=== PATIENT | female | born 1965 | race Caucasian/White ===

== ENCOUNTER 2018-03-09 06:04 | Inpatient (IN) ==
[2018-03-09] MEDS ORDERED: Albuterol 2.5 MG/3 ML NEBULIZER IH ONE (06:22)
[2018-03-09] MEDS ORDERED: CeFAZolin Syr 2,000MG/20 ML 2,000 MG/20 ML SYRINGE IVPB ONE (06:22)
[2018-03-09] MEDS ORDERED: Ringers Solution, Lactated 1,000 ML IVC SCH (06:30)
--- NOTE | 2018-03-09 06:50 | History & Physical Report ---
Date of Encounter: 03/09/18 Time of Encounter: 06:50 24 Hour HP Update - Instructions Instructions: If the History and Physical is less than 30 days old and was completed prior to A.M. admission and or procedure and has NOT been updated on calendar day of procedure please complete this update prior to performing procedure. - Update Patient reports changes in Medical Condition: No Changes in examination, assessment, or condition: No Changes in Medication: No Preop tests/diagnostics Reviewed: Yes Surgery Remains Indicated: Yes Consent for Planned Operative Procedure(s) Verified: Yes - Pre-Operative Checklist Preoperative Checklist Indicated: No Prophylactic Antibiotic Ordered: Yes Is VTE Prophylaxis Indicated?: Yes
[2018-03-09] MEDS ORDERED: *HR* Midazolam HCl 2 MG/2 ML VIAL ONE (06:57)
[2018-03-09] MEDS ORDERED: *HR* FentaNYL (PF) 100 MCG/2 ML VIAL ONE ×2 (06:57→08:10)
[2018-03-09] MEDS ORDERED: Propofol 500 MG/50 ML INFUS..BTL ONE (07:00)
[2018-03-09] MEDS ORDERED: *HR* Propofol 200 MG/20 ML VIAL IVP ONE (07:00)
[2018-03-09] MEDS ORDERED: ROPIVACAINE HCL/PF 0.5% 30 ML VIAL ONE (07:10)
[2018-03-09] MEDS ORDERED: Bupivacaine/Clonidine Syringe 1 EACH SYRINGE ONE (07:10)
[2018-03-09] MEDS ORDERED: Ethanol\\Acetic Acid\\Na Ace\\Ben 1,000 ML IRRIG.SOLN IR ONE (07:12)
[2018-03-09] MEDS ORDERED: Pregabalin 75 MG CAPSULE ONE (07:12)
[2018-03-09] MEDS ORDERED: Metoclopramide 10 MG/2 ML VIAL ONE (07:12)
[2018-03-09] MEDS ORDERED: Acetaminophen IV 1,000 MG/100 ML INFUS..BTL ONE (07:13)
[2018-03-09] MEDS ORDERED: Famotidine 20 MG/2 ML VIAL ONE (07:13)
[2018-03-09] MEDS ORDERED: Famotidine 20 MG/2 ML VIAL IVP ONE (07:16)
[2018-03-09] MEDS ORDERED: Metoclopramide 10 MG/2 ML VIAL IVP ONE (07:16)
[2018-03-09] MEDS ORDERED: Pregabalin 75 MG CAPSULE PO ONE (07:17)
[2018-03-09] MEDS ORDERED: Acetaminophen IV 1,000 MG/100 ML INFUS..BTL IVPB ONE (07:17)
[2018-03-09] MEDS ORDERED: LIDOCAINE 1% PF 2 ML AMPUL ONE (07:18)
[2018-03-09] MEDS ORDERED: Ondansetron 4 MG/2 ML VIAL ONE (07:18)
--- NOTE | 2018-03-09 07:21 | Anesthesia Evaluation PreOp ---
Date of Encounter: 03/09/18 Time of Encounter: 07:15 - Past History Planned Operation: Rt TKA Cardiac History: HTN, Hyperlipidemia, Arrhythmia Pulmonary History: Smoker, COPD DYE TANK TENDER History: Denies Any Significant HX, Other (Chronic Back Pain DDD) Other Medical History: Diabetes Type II Anesthesia History: No Prior Anesthetic Complications : No Alcohol Use: none, rarely Drug use: none, other Medications and Allergies Prazosin [Minipress] 5 mg PO DAILY 03/26/17 [History] Aspirin Enteric Coated [Aspirin EC] 325 mg PO BID 10 Days #20 tablet. [Rx] OxyCODONE Immed Rel [Roxicodone 5 MG] 5 mg PO Q6HR PRN 7 Days #28 tablet [Rx] DULoxetine [Cymbalta] 30 mg PO DAILY 03/09/18 [History] Dapagliflozin/Metformin HCl [Xigduo Xr 5 mg-1,000 mg Tablet] 1 each PO DAILY [History] Furosemide [Lasix] 20 mg PO PRN PRN 03/09/18 [History] Gabapentin [Neurontin] 800 mg PO QID 03/09/18 [History] Insulin Degludec [Tresiba Flextouch U-200] 40 unit SUBTEN DAILY 03/09/18 [ History] Potassium 10 mg PO BID 03/09/18 [History] Varenicline Tartrate [Chantix Continuing Months Pack] 1 each PO AD 03/09/18 [ History] 3 Allergy/AdvReac Type Severity Reaction Status Date / Time amitriptyline Allergy See Verified 02/19/18 14:44 Comments hydrochlorothiazide Allergy Dizziness Verified 02/19/18 14:44 ondansetron [From Zofran] Allergy Headache Verified 02/19/18 14:44 pregabalin [From Lyrica] Allergy See Verified 02/19/18 14:44 Comments sitagliptin [From Januvia] Allergy See Verified 02/19/18 14:44 Comments DPP4I Allergy See Uncoded 03/09/18 06:48 Comments GLP1 Allergy See Uncoded 02/19/18 14:44 Comments - Meds/Allergy Pre-op Review Medications Reviewed: Yes Allergies Reviewed: Yes Beta Blockers on Current Med List: No Anesthesia Results - Labs Laboratory Tests 02/19/18 02/19/18 02/19/18 15:12 15:12 15:12 Hgb 15.0 Hct 42.8 Plt Count 124 L PT 11.4 INR 1.0 APTT 35.1 Sodium 136 Potassium 4.2 BUN 15 Creatinine 0.91 - Imaging EKG: report reviewed (SR) Additional studies: ECHO EF 55% 2014 Anesthesia Exam O2 Sat Height 1.52 m Height 1.52 m Height 1.52 m Weight 77.111 kg Weight 77.111 kg Weight 77.111 kg O2 Sat by Pulse Oximetry 96 Vital Signs Temp Pulse Resp BP Pulse Ox 97.8 F 69 18 119/76 96 03/09/18 06:41 03/09/18 06:41 03/09/18 06:41 03/09/18 06:41 03/09/18 06:41 Height: 5'0 Weight: 170 lbs NPO (# of Hours): MN Pain Scale: 0 - HEENT Pupil (Motor): Pupils equal, EOMI Mallampati: II Teeth: Normal Oral Opening: Greater than 3 - DYE TANK TENDER LOC: Oriented DYE TANK TENDER Motor: Normal RUE, Normal LUE, Normal RLE, Normal LLE, Normal Face DYE TANK TENDER Sensory: Normal: RUE, LUE, RLE, LLE, Face - Cardiac Rhythm: Regular Murmur: None JVD: No Carotid Bruit: No - Pulmonary Breath Sounds: bilateral Clear Respiratory Effort: Symmetrical Anesthesia Assess/Plan ASA Score: 3 (DM COPD HTN) Modified [place] Scale for Level of Consciousness: Cooperative, oriented, and tranquil Anesthetic Plan: General, Regional Monitoring Plan: Standard Monitors Recovery Plan: PACU (Discussed GA and RA, agrees to proceed)
[2018-03-09] MEDS ORDERED: *HR* OxyCODONE/APAP 5/325 TABLET PO PRN (07:23)
[2018-03-09] MEDS ORDERED: *HR* Promethazine 25 MG/ML VIAL IVP ONE (07:26)
[2018-03-09] MEDS ORDERED: EPHEDrine 50 MG/ML VIAL ONE (08:28)
--- NOTE | 2018-03-09 08:35 | Anesthesia Procedures ---
Date of Encounter: 03/09/18 Time of Encounter: 07:31 Procedures: Anesthesia - Nerve Block Procedure Date: 03/09/18 Time: 07:31 Allergies/Adv Reactions: Refer to Allergy Documentation in Chart Pre-op Diagnosis: OA R Knee Surgical Procedure: R Knee TKArthroplasty Checklist: Correct Patient Identifier, Correct procedure, History checked Correct side: Right Blood Thinner: No Monitor Applied: EKG, BP, Pulse Oximetry Supplemental Oxygen via Nasal Cannula (L/min): 2 Sedation: Versed (mg): 2 Sedation: Fentanyl (mcg): 100 Indication: Post Op Analgesia Pre-op Neuro Deficits: No Block Type: Other (Adductor Canal Block and IPACK Block) Catheter placed: No Sterile Technique: Yes Ultrasound used: Yes Anatomy identified: Yes Visual spread of Local: Yes Neuro Stimulation: No Blood on Needle Aspiration: No Smooth Injection of Local: Yes Pain with Injection of Local: No Prep: Chlorhexadine Needle: 21 x 100 mm Stimuplex (x2) Local: 0.25% Bupivicaine w/Clonidine 20 mcg/cc (20mL for IPACK ), Ropivacaine ( 20mL 0.5% Ropivacaine for Adductor Canal Block) Volume (cc): 20/20 Number of Attempts: 1 Complications: None/effective block Vitals: Vital Signs/O2 Sat/Glucose, Most Recent Temp Pulse Resp BP Pulse Ox 97.8 F 78 18 128/78 94 03/09/18 06:41 03/09/18 07:47 03/09/18 06:41 03/09/18 07:47 03/09/18 07:47 Blood Glucose* 185
--- NOTE | 2018-03-09 08:49 | Orthopedic Operative Note ---
Date of procedure: 03/09/18 Pre-op diagnosis: Right knee arthritis Post-op diagnosis: same Procedure: Procedure: Right robotic-assisted Total knee replacement Estimated blood loss: 200 cc Hardware: Metal and polyethylene replacement. [place] Femur: 2 Tibia: 3 TS insert: 11 Patella: 36 Exam Under anesthesia: 1 degree extension 3 degree varus as calculated by the robot full flexion and no instability Procedural Notes: Grade 4 arthritic changes medial compartment patellofemoral joint grade 3 lateral compartment Operative procedure: The patient was brought to the operating room and placed on the operating room table. After general anesthesia was administered the operative knee was examined. Findings were noted in the exam under anesthesia. The operative extremity was prepped and draped in sterile surgical fashion. The patient received IV antibiotics prior to skin incision. A standard midline incision was made centered over the patella. The incision was made through the skin and subcutaneous tissue. A medial parapatellar tendon approach was performed. Care was taken to preserve tissue along the medial aspect of the patella. And to protect the patella tendon. The deep MCL was released off the medial tibia. The infra patella fat pad was excised. The patella was everted and cut was made at the level of the insertion of the quadriceps and patella tendon. The patella was sized to a 36 the guide was seated and the lug holes are drilled. Knee was brought into flexion. Patient noted to have Steinmann pins were placed in the tibia and the femur for the tibial and femoral arrays respectively. Checkpoints were also placed in the tibia and the femur for calculation purposes. The knee including the femur and the tibial registered. Osteophytes, ACL and PCL were excised at this point. Extension and flexion were assessed with a valgus stress components were adjusted on the computer to balance the knee. Femoral cuts were made first with robotic assistance, these included the anterior cut posterior cuts chamfer cuts. Tibial cut was then performed with robotic assistance as well. Bone fragments were removed, as well as the medial and lateral meniscus. The size 2 femoral guide was seated box cut was made lug holes are drilled. The size 3 tibial tray was seated and prepared with the fin cutter. Trial reduction with the 11 TS Shirin revealed extension of 0 degree and full flexion. No varus valgus instability. Trial reduction revealed excellent patella tracking. All trial components were removed all bony surfaces were irrigated. The Tibia was seated followed by the femur, The Shirin size 11 was seated and secured patella. Patient had similar findings for motion and stability. The knee was closed by the PA. The knee was then irrigated out with 2 L of pulse irrigation. The extensor mechanism was closed with #2 FiberWire suture and #2 PDS suture. The subcutaneous tissue was then irrigated and closed deep with #1 PDS suture superficially with 0 PDS suture and skin was closed with zip tie The patient was then placed in a sterile dressing and a postoperative brace extubated and transferred to recovery room in stable condition. Anesthesia: GETA Surgeon: David Branch Was there an floral assistant present: No Estimated blood loss (cc): 200 Condition: stable Disposition: PACU
[2018-03-09] MEDS: *HR* FentaNYL (PF) 100 MCG/2 ML VIAL IVP PRN ×4 (09:31→09:50)
[2018-03-09 09:54] LABS: Hematocrit 43.5 % (35.3-44.9); Hemoglobin 14.8 g/dL (11.5-15.4)
[2018-03-09] MEDS ORDERED: Temazepam 15 MG CAPSULE PO PRN (10:29)
[2018-03-09] MEDS ORDERED: *HR* Promethazine 25 MG/ML VIAL IVP PRN (10:29)
[2018-03-09] MEDS ORDERED: Naloxone 0.4 MG/ML INJ IVP PRN (10:29)
[2018-03-09] MEDS ORDERED: MOM Conc 10 ML UD.LIQ PO PRN (10:29)
[2018-03-09] MEDS ORDERED: Sennosides 8.6 MG TABLET PO PRN (10:29)
[2018-03-09] MEDS ORDERED: traMADol 50 MG TABLET PO PRN (10:29)
--- NOTE | 2018-03-09 11:23 | Anesthesia Evaluation Post Op ---
Date of Encounter: 03/09/18 Time of Encounter: 10:40 - Vital Signs Vital Signs: Vital Signs/O2 Sat/Glucose, Most Current Temp Pulse Resp BP Pulse Ox 03/09/18 10:36 97.7 F 87 20 120/76 93 03/09/18 09:55 98.1 F 90 14 125/74 94 03/09/18 09:44 96 20 127/82 99 03/09/18 09:34 95 22 102/87 98 03/09/18 09:24 97.7 F 100 24 136/79 97 03/09/18 07:47 78 128/78 94 03/09/18 07:38 74 128/81 94 - Lungs Lungs: Clear Ascult./Percussion - Airway Airway: Non-obstructed - Cardiovascular Regular Rate - Mental Status Mental Status: Alert & Oriented, Answers Appropriately - Pain Pain Scale: 2 - Nausea Vomiting Nausea Vomiting: Not Present - Hydration Hydration: Ice chips - Discharge PostOp Status: Transfer Patient to floor
[2018-03-09] MEDS: Gabapentin 400 MG CAPSULE PO SCH ×4 (11:30→20:34)
[2018-03-09] MEDS: *HR* HYDROcodone/Acet 10/325 mg TABLET PO PRN ×3 (11:57→23:23)
[2018-03-09] MEDS: Insulin DETEMIR 100 UNIT/ML X5UNITS SQ SCH (11:58)
[2018-03-09] MEDS: METFORMIN HCL PO SCH (11:59)
[2018-03-09] MEDS: DAPAGLIFLOZIN PO SCH (11:59)
[2018-03-09] MEDS: Ringers Solution, Lactated 1,000 ML IVC SCH ×2 (12:00→14:11)
[2018-03-09] MEDS ORDERED: Acetaminophen IV 1,000 MG/100 ML INFUS..BTL IVPB PRN (15:17)
--- NOTE | 2018-03-09 15:38 | Event Note ---
Date of Encounter: 03/09/18 Time of Encounter: 14:45 S/w patient's nurse re: dressings. Saturated x 1 after surgery. Met with patient and incision inspected revealing completely saturated dressings with active bleeding from distal half of wound. Zipline removed. Incision cleansed with alcohol. Emily placed. Bleeding stopped following staple placement. Zipline replaced. Pressure dressing placed. AKIL wrap and polar pack as well as brace reapplied. Patient tolerated well. Repeat CBC to check for platelet count as well as H&H given continued bleeding and fully saturated dressings x 2. Ordered Ofirmev for patient as well. Will hold off on NSAID administration secondary to bleeding.
[2018-03-09] MEDS ORDERED: Dextrose Gel 15 GM/37.5 ML TUBE PO PRN ×2 (16:09)
[2018-03-09] MEDS ORDERED: *HR* Dextrose 50 % in Water (Syg) 50 ML SYRINGE IVP PRN (16:09)
[2018-03-09] MEDS ORDERED: D5% in Water 1,000 ML IVC PRN (16:09)
[2018-03-09] MEDS: Insulin LISPRO 300 UNITS/3 ML VIAL SQ SCH (16:52)
[2018-03-09] MEDS: *HR* Enoxaparin 30 MG/0.3 ML SYRINGE SQ SCH (16:53)
[2018-03-09 17:22] LABS: Basophils % 0.1 %; Hematocrit 36.2 % (35.3-44.9); Hemoglobin 12.9 g/dL (11.5-15.4); Immature Granulocytes % 0.3 % (0-4); Lymphocytes # 0.5 K/mcL (0.6-4.6); Lymphocytes % 4.8 %; Mean Corpuscular HGB Conc 35.6 g/dL (31.6-35.5); Mean Corpuscular Hemoglobin 33.7 pg (28.0-33.3); Mean Corpuscular Volume 94.5 fL (83.0-100.0); Mean Platelet Volume 11.1 fL (9.4-12.4); Monocytes # 0.2 K/mcL (0.0-1.3); Monocytes % 1.4 %; Neutrophils # 10.2 K/mcL (1.6-8.9); Platelet Count 109 K/mcL (140-400); Red Blood Count 3.83 M/mcL (3.82-4.97); Red Cell Distribution Width 13.3 % (11.5-14.5); Segmented Neutrophils % 93.4 %
[2018-03-09] MEDS ORDERED: *HR* Enoxaparin 30 MG/0.3 ML SYRINGE SQ SCH (18:00)
[2018-03-09] MEDS ORDERED: Furosemide 20 MG TABLET PO PRN (19:40)
[2018-03-09] MEDS: *HR* HYDROcodone/Acet 5/325 mg TABLET PO PRN (20:34)
[2018-03-09] MEDS ORDERED: Insulin LISPRO 300 UNITS/3 ML VIAL SQ SCH (21:00)
[2018-03-10] MEDS: VARENICLINE TARTRATE 1 MG TABLET PO SCH ×2 (00:49→10:13)
[2018-03-10 02:17] LABS: Hemoglobin 11.3 g/dL (11.5-15.4)
[2018-03-10 02:35] LABS: BUN/Creatinine Ratio 26 (6-26); Blood Urea Nitrogen 19 mg/dL (6-20); Carbon Dioxide 22 mEq/L (23-29); Chloride 105 mEq/L (98-107); Glucose 326 mg/dL (70-105); Osmolality,Calculated 291 (280-300); Potassium 3.9 mEq/L (3.5-5.1); Sodium 133 mEq/L (136-145); eGFR For African Americans > 60 (> 60); eGFR For Non-African Americans > 60 (> 60)
[2018-03-10] MEDS: *HR* HYDROcodone/Acet 5/325 mg TABLET PO PRN ×3 (03:56→15:18)
[2018-03-10] MEDS: *HR* HYDROcodone/Acet 10/325 mg TABLET PO PRN ×2 (05:36→11:41)
[2018-03-10] MEDS: *HR* Enoxaparin 30 MG/0.3 ML SYRINGE SQ SCH (05:37)
--- NOTE | 2018-03-10 06:24 | Orthopedics Progress Note ---
Date of Encounter: 03/10/18 Time of Encounter: 06:23 Subjective Interval history: Patient was seen this morning doing well without complaints. Afebrile vital signs stable. Operative extremity: Neurovascularly intact Dressing clean dry and intact Calves nontender Assessment and plan: Continue with postoperative care Hematocrit 32 plan for discharge today Objective Vital signs: Vital Signs Temp Pulse Resp BP Pulse Ox 03/10/18 03:43 98.2 F 82 15 138/80 94 03/09/18 23:22 98.2 F 80 15 123/78 98 03/09/18 21:39 98 03/09/18 18:24 98.1 F 72 16 107/70 98 03/09/18 13:35 97.8 F 85 17 127/76 97 03/09/18 12:34 97.7 F 89 16 124/76 98 03/09/18 11:30 97.6 F 82 18 120/75 95 03/09/18 11:07 97.6 F 85 18 120/74 95 03/09/18 10:36 97.7 F 87 20 120/76 93 03/09/18 09:55 98.1 F 90 14 125/74 94 03/09/18 09:44 96 20 127/82 99 03/09/18 09:34 95 22 102/87 98 03/09/18 09:24 97.7 F 100 24 136/79 97 03/09/18 07:47 78 128/78 94 03/09/18 07:38 74 128/81 94 03/09/18 06:41 97.8 F 69 18 119/76 96 Intake and Output 03/09/18 03/09/18 03/10/18 15:59 23:59 07:59 Intake Total 1000 / 1000 200 / 200 100 / 100 Output Total 200 / 200 600 / 600 Balance 800 / 800 -400 / -400 100 / 100 Intake: IV Fluids 1000 / 1000 200 / 200 100 / 100 Lactated Ringers 1,000 ML @ 75 1000 / 1000 mls/hr IVC .[id number] DANISH Rx#: [id number] Ofirmev 1,000 mg/100 ml 1,000 100 / 100 mg In 100 ml @ 400 mls/hr IVPB Q6HR PRN Rx#:[id number] Ancef 2,000 MG In 0.9 % Sodium 100 / 100 100 / 100 Chloride 100 ML @ 200 mls/hr IVPB Q8HR DANISH Rx#:[id number] Output: Urine 600 / 600 Estimated Blood Loss 200 / 200 Other: # Voids 1 1 Blood Glucose* 439 290 - Labs CBC & BMP: 03/10/18 01:54 03/10/18 01:54 Labs: Abnormal lab results Hgb 11.3 g/dL (11.5-15.4) L D 03/10/18 01:54 Hct 32.0 % (35.3-44.9) L 03/10/18 01:54 MCH 33.7 pg (28.0-33.3) H 03/09/18 16:58 MCHC 35.6 g/dL (31.6-35.5) H 03/09/18 16:58 Plt Count 109 K/mcL (140-400) L 03/09/18 16:58 Neutrophils # 10.2 K/mcL (1.6-8.9) H 03/09/18 16:58 Lymphocytes # 0.5 K/mcL (0.6-4.6) L 03/09/18 16:58 Sodium 133 mEq/L (136-145) L 03/10/18 01:54 Carbon Dioxide 22 mEq/L (23-29) L 03/10/18 01:54 Glucose 326 mg/dL (70-105) H 03/10/18 01:54 POC Glucose 450 mg/dL (70-99) H* 03/09/18 16:01 - VTE Documentation of Mechanical Device: Venous foot pump, device Consult Discharge Plan - Plan Referrals: Mica López, AMUSEMENT OR RECREATION CARD CHECKER [Primary Care Provider] -
[2018-03-10] MEDS: Gabapentin 400 MG CAPSULE PO SCH ×2 (09:18→12:31)
[2018-03-10] MEDS: Insulin LISPRO 300 UNITS/3 ML VIAL SQ SCH ×2 (09:20→12:31)
[2018-03-10] MEDS: METFORMIN HCL PO SCH (09:21)
[2018-03-10] MEDS: DAPAGLIFLOZIN PO SCH (09:21)
[2018-03-10] MEDS: Insulin DETEMIR 100 UNIT/ML X5UNITS SQ SCH (09:24)
[2018-03-10 11:26] VITALS: BP 103/69
[2018-03-10] MEDS: Ringers Solution, Lactated 1,000 ML IVC SCH (15:10)
--- NOTE | 2018-03-10 15:18 | Discharge Summary ---
Orders not resulted at time of discharge: Pending orders 03/09/18 07:24 US anesthesia pain block [US] Routine 03/11/18 04:00 Basic Metabolic Panel AM 0400 Hemoglobin and Hematocrit [HEME] AM 0400 Date of Encounter: 03/10/18 Time of Encounter: 13:00 - Discharge Diagnosis (1) Arthritis of right knee Priority: Primary Status: Chronic (2) Status post total right knee replacement Priority: Primary Status: Acute (3) COPD (chronic obstructive pulmonary disease) Priority: Secondary Status: Chronic Qualifiers: COPD type: unspecified COPD Qualified Code(s): J44.9 - Chronic obstructive pulmonary disease, unspecified (4) Diabetes mellitus Priority: Secondary Status: Chronic Qualifiers: Diabetes mellitus type: type 2 Diabetes mellitus terminal superintendent insulin use: with care home use Diabetes mellitus complication status: with unspecified complications Qualified Code(s): E11.8 - Type 2 diabetes mellitus with unspecified complications; Z79.4 - senior living (current) use of insulin (5) Tobacco dependence Priority: Secondary Status: Chronic - Hospital Course Hospital course: Ms. Ching is a 53 year old female PCR- POD# 1 s/p R TKR robotic 03/09 [facility] PCR - Patient seen at bedside. Patient's son at bedside. Alert and oriented x 3. Labwork and medications reviewed. Vital signs reviewed. No calf tenderness b/l LE. Neurovascularly intact b/l LE. Ecchymosis noted to right knee as expected following total joint replacement. Pain control: Adequate - discussed appropriate narcotic pain medication use as well as need for multi-modal therapy to aid in postoperative pain control. Patient verbalized understanding and plan for help at home monitoring narcotic pain medication use as she states she does not wish or intend to relapse. Discussed resources available should concern regarding relapse use arise and patient verbalized acknowledgement and understanding. Participating in PT. Patient with decreased time on CPM secondary per patient to pain. Discussed importance of therapy to avoid stiffness of joint developing - verbalized understanding. All questions and concerns addressed. Educated on use of incentive spirometer, ambulation, and hydration. Patient educated on post-operative restrictions and care. Addressed: Pain. Discussed at length regarding appropriate use, state laws, and practice rules. Patient verbalized understanding and agreement with stated restrictions. Discussed multi-modal approach to pain control and MR and NSAID sent to pharmacy as well to aid in home pain control. D/C plan: Home with home health - Time Spent with Patient Total time spent providing and/or coordinating discharge services: - Discharge Medications Prescriptions: Ibuprofen [Ibu] 600 mg PO QID PRN 7 Days #28 tablet PRN Reason: Pain Tizanidine HCl 4 mg PO QID PRN 7 Days #28 tablet PRN Reason: Muscle Spasm Home Medications: Prazosin [Minipress] 5 mg PO DAILY 03/26/17 [History] Aspirin Enteric Coated [Aspirin EC] 325 mg PO BID 10 Days #20 tablet. [Rx] OxyCODONE Immed Rel [Roxicodone 5 MG] 5 mg PO Q6HR PRN 7 Days #28 tablet [Rx] DULoxetine [Cymbalta] 30 mg PO DAILY 03/09/18 [History] Dapagliflozin/Metformin HCl [Xigduo Xr 5 mg-1,000 mg Tablet] 1 each PO DAILY [History] Furosemide [Lasix] 20 mg PO DAILY PRN 03/09/18 [History] Gabapentin [Neurontin] 800 mg PO QID 03/09/18 [History] Insulin Degludec [Tresiba Flextouch U-200] 80 unit SQ BID 03/09/18 [History] Potassium Chloride [Klor-Con 10] 10 meq PO BID PRN 03/09/18 [History] Varenicline Tartrate [Chantix Continuing Months Pack] 1 mg PO BID 03/09/18 [ History] Ibuprofen [Ibu] 600 mg PO QID PRN 7 Days #28 tablet 03/10/18 [Rx] Tizanidine HCl 4 mg PO QID PRN 7 Days #28 tablet 03/10/18 [Rx] Allergies/Adverse Reactions: 3 Allergy/AdvReac Type Severity Reaction Status Date / Time pregabalin [From Lyrica] Allergy See Verified 02/19/18 14:44 Comments sitagliptin [From Januvia] Allergy See Verified 02/19/18 14:44 Comments amitriptyline AdvReac See Verified 03/09/18 12:18 Comments hydrochlorothiazide AdvReac Dizziness Verified 03/09/18 12:18 ondansetron [From Zofran] AdvReac Headache Verified 03/09/18 12:18 DPP4I Allergy See Uncoded 03/09/18 06:48 Comments GLP1 Allergy See Uncoded 02/19/18 14:44 Comments Date of admission: 03/09/18 10:32 Primary care physician: Mica López CNP Consults: 03/09/18 10:29 Consult to Occupational Therapy [CONS] Routine Comment: Evaluate, develop and implement POC Reason for Consult: post knee surgery Does patient have active BEDREST order?: No Is patient medically & hemodynamically stable?: Yes Consult to Orthopedic Navigator [CONS] [CONS] Routine Consult to Physical Therapy [CONS] Routine Comment: Evaluate, develop and impliment POC Reason for Consult: post knee surgery Does patient have active BEDREST order?: No Is patient medically & hemodynamically stable?: Yes Consult to Ply Splicer [CONS] Routine Reason for SW Consult: post op joint replacement RT Post Op Consult [CONS] Routine Anticipated date of discharge: 03/10/18 - VTE Documentation of Mechanical Device: Venous foot pump, device Labs on day of discharge: Labs from last 24 hours 03/10/18 03/10/18 03/10/18 08:04 01:54 01:54 WBC RBC Hgb 11.3 L D Hct 32.0 L MCV MCH MCHC RDW Plt Count MPV Immature Gran % Seg Neutrophils % Lymphocytes % Monocytes % Eosinophils % Basophils % Neutrophils # Lymphocytes # Monocytes # Eosinophils # Basophils # Sodium 133 L Potassium 3.9 Chloride 105 Carbon Dioxide 22 L BUN 19 Creatinine 0.72 Est GFR ( Amer) > 60 Est GFR (Non-Af Amer) > 60 BUN/Creatinine Ratio 26 Glucose 326 H POC Glucose 323 H Calculated Osmolality 291 Calcium 9.0 03/09/18 03/09/18 03/09/18 20:44 18:20 16:58 WBC 10.9 RBC 3.83 Hgb 12.9 D Hct 36.2 MCV 94.5 MCH 33.7 H MCHC 35.6 H RDW 13.3 Plt Count 109 L MPV 11.1 Immature Gran % 0.3 Seg Neutrophils % 93.4 Lymphocytes % 4.8 Monocytes % 1.4 Eosinophils % 0.0 Basophils % 0.1 Neutrophils # 10.2 H Lymphocytes # 0.5 L Monocytes # 0.2 Eosinophils # 0.0 Basophils # 0.0 Sodium Potassium Chloride Carbon Dioxide BUN Creatinine Est GFR ( Amer) Est GFR (Non-Af Amer) BUN/Creatinine Ratio Glucose POC Glucose 290 H 385 H Calculated Osmolality Calcium 03/09/18 03/09/18 03/09/18 16:01 16:00 11:06 WBC RBC Hgb Hct MCV MCH MCHC RDW Plt Count MPV Immature Gran % Seg Neutrophils % Lymphocytes % Monocytes % Eosinophils % Basophils % Neutrophils # Lymphocytes # Monocytes # Eosinophils # Basophils # Sodium Potassium Chloride Carbon Dioxide BUN Creatinine Est GFR ( Amer) Est GFR (Non-Af Amer) BUN/Creatinine Ratio Glucose POC Glucose 450 H* 439 H* 272 H Calculated Osmolality Calcium - Impressions ITS Impressions Knee X-Ray 03/09/18 01:00 IMPRESSION: 1. Right knee arthroplasty. No radiographic evidence of complication. D/ / Enmanuel Kellogg MD / Enmanuel Kellogg MD Interpreting Provider: Enmanuel Kellogg MD - Patient Status Disposition: Home Health Service Condition: Good Functional capacity at discharge: uses cane/walker Overall status at discharge: patient is progressing back to baseline - Discharge Instructions Instructions: Chest Pain (DC), Total Knee Replacement (DC) Follow Up With: Carla Neri PAC [Physician Diver Assistant] - 03/19/18 11:15 am Mica López CNP [Primary Care Provider] - Additional Instructions: Discharge Instructions: Total Knee Replacement Please call [facility] ([phone]), your Primary Care Physician, or report to the Emergency Room if you have any of the following symptoms: Nausea, vomiting, fever greater that 101.5, swelling, chest pain, shortness of breath, increased pain/redness/drainage/odor for your incision site, numbness/ tingling, or any other concerning symptoms. ACTIVITY:Weight-bearing as tolerated. You may progress off support (crutches or walker) as tolerated. MEDICATIONS: Upon discharge resume your home medications. Take all the medications as prescribed. Take a stool softener if taking narcotic pain medications. Stool softeners are only effective if you drink enough fluids. Drink 6-8 glass of water or fluids a day, unless this is not allowed for another health problem. Despite using stool softeners, if you haven't had a bowel movement in 3 days, please switch to a gentle laxative. Gentle laxatives are sold over the counter. You should have a bowel movement within 24 hours, if not call the office. You will be discharged from the hospital with a prescription for pain medication. You are encouraged to decrease the use of narcotic pain medication as tolerated. Should you require a refill, please call the office. [facility] prescribes narcotic pain medication for only 4-6 weeks after surgery. If you require pain medication beyond this time period, you may be referred to your Primary Care Physician or to the Pain Clinic for further evaluation. Plan ahead for refills on pain medication as many narcotics either need to be picked up at the office or mailed. It is best to call 48-72 hours in advance of needing a prescription refill so you don't run out of medication. To help control the post-operative pain, you may take NSAIDs (Aleve,Advil, Motrin, Ibuprofen, Naprosyn) or Tylenol as prescribed on the bottle in addition to the pain medication. ANTICOAGULATION (blood thinners): Continue your Aspirin, Lovenox or Coumadin as prescribed to help prevent a blood clot in the leg or in the lungs. As long as your incision remains dry and you tolerate the NSAIDs (Aleve, Advil, Motrin, ibuprofen, naprosyn), it is OK to use the NSAIDS while you are taking your anticoagulation medication. Should your incision start to drain, stop the NSAID and contact our office. Common symptoms of blood clot in the legs include: localized pain, swelling, calf tenderness, redness or discoloration of the skin. Blood clot in the lung symptoms include: shortness of breath, rapid pulse, sweating, and chest pain that worsens with deep breathing, coughing up blood, lightheadedness, feelings of anxiety. If you experience any of these symptoms notify your physician immediately, go to the emergency room, or if having trouble breathing, call 911. WOUND CARE: Leave the dressing on for 7 to 10days. You may change the dressing if it becomes saturated greater than 50%. Do not get the dressing wet at anytime. Wash your hands with antibacterial soap, rinse and dry prior to any wound care. If you have abdi the visiting nurse or rehab facility can remove the stapes 10-14 days after surgery and place steri-strips across the wound. Leave the steri-strips in place until they fall off on their won. You may let water from the shower run on top of the steri-strips. If you do not have a visiting nurse or rehab facility, you will need to return to the office at 10-14 days for the abdi to be removed. If you have itching or redness around the dressing call the office. FOLLOW-UP: Please follow up with your surgeon in the orthopedic clinic in 4 weeks from the day of surgery. If you have abdi that need to be removed, you will need to come back to the office in 10-14 days from the day of surgery. - Diet and Activity Activity: as per physical therapy Diet: advance to your usual diet
--- NOTE | 2018-03-11 11:49 | Physician Discharge Referral ---
Home Health/Hosp Referral Info Transfer to: Home Health Attending Provider: Dr David Branch Provider in Charge Post Discharge: PCP - Diagnosis (1) Arthritis of right knee Priority: Primary Status: Chronic (2) Status post total right knee replacement Priority: Primary Status: Acute (3) COPD (chronic obstructive pulmonary disease) Priority: Secondary Status: Chronic (4) Diabetes mellitus Priority: Secondary Status: Chronic (5) Tobacco dependence Priority: Secondary Status: Chronic - Respiratory Orders Smoking Cessation: Smoking cessation has been advised. For more information, call the [place] Tobacco Quit Line at 0-214-BQMA-NOW. - Dressing/Wound Care Site: Right knee Type of Dressing/Treatments w/Frequency: Opsite placed. Keep dressing intact until first follow up appointment. If greater than 50% saturated, notify office, remove dressing and place appropriate dressing back in place. Leave Zipline and abdi intact. Opsite dressing is water resistant, not water-proof. OK to shower, but do not get dressing wet. - Diet/Nutrition Diet/Nutrition Orders: Regular - Activity Activity Orders: Up ad stacey, Ambulate, Chair, Walker Activity: List: Total Knee replacement Precautions x 6 weeks Apply cold therapy wrap 3-6x/day for 20 minutes at a time. Encourage ambulation throughout the day and incentive spirometer 10x/hour. Elevate affected extremity above heart as tolerated. Brace: Wear knee immobilizer at night x 2 weeks. - Services Needed Following services are medically necessary services: Nursing, Home Health Aide, Physical Therapy, Occupational Therapy, Med Social Work - Transfer Medications Prescriptions: Ibuprofen [Ibu] 600 mg PO QID PRN 7 Days #28 tablet PRN Reason: Pain Tizanidine HCl 4 mg PO QID PRN 7 Days #28 tablet PRN Reason: Muscle Spasm Home Medications: Prazosin [Minipress] 5 mg PO DAILY 03/26/17 [History] Aspirin Enteric Coated [Aspirin EC] 325 mg PO BID 10 Days #20 tablet. [Rx] OxyCODONE Immed Rel [Roxicodone 5 MG] 5 mg PO Q6HR PRN 7 Days #28 tablet [Rx] DULoxetine [Cymbalta] 30 mg PO DAILY 03/09/18 [History] Dapagliflozin/Metformin HCl [Xigduo Xr 5 mg-1,000 mg Tablet] 1 each PO DAILY [History] Furosemide [Lasix] 20 mg PO DAILY PRN 03/09/18 [History] Gabapentin [Neurontin] 800 mg PO QID 03/09/18 [History] Insulin Degludec [Tresiba Flextouch U-200] 80 unit SQ BID 03/09/18 [History] Potassium Chloride [Klor-Con 10] 10 meq PO BID PRN 03/09/18 [History] Varenicline Tartrate [Chantix Continuing Months Pack] 1 mg PO BID 03/09/18 [ History] Ibuprofen [Ibu] 600 mg PO QID PRN 7 Days #28 tablet 03/10/18 [Rx] Tizanidine HCl 4 mg PO QID PRN 7 Days #28 tablet 03/10/18 [Rx] Allergies/Adverse Reactions: 3 Allergy/AdvReac Type Severity Reaction Status Date / Time pregabalin [From Lyrica] Allergy See Verified 02/19/18 14:44 Comments sitagliptin [From Januvia] Allergy See Verified 02/19/18 14:44 Comments amitriptyline AdvReac See Verified 03/09/18 12:18 Comments hydrochlorothiazide AdvReac Dizziness Verified 03/09/18 12:18 ondansetron [From Zofran] AdvReac Headache Verified 03/09/18 12:18 DPP4I Allergy See Uncoded 03/09/18 06:48 Comments GLP1 Allergy See Uncoded 02/19/18 14:44 Comments Certification: Further, I certify that my clinical findings support that this patient is homebound (i.e. absences from home require considerable and taxing effort and are for medical reasons or christian services or infrequently or short duration when for other reasons) because: Homebound Reason: Post-surgery restriction and or conditions limit ability to leave home Attestation: My signature below is to certify that this patient is under my care and that I, or nurse practitioner, or a physician perioperative assistant working with me, has a face-to- face encounter with this patient.
== END 2018-03-10 15:26 | disposition home health service (06) | DRG 302 ==
LOC: SAMDAY 06:04 → 3NENU 10:32
PROVIDERS: ADMIT Orthopaedic Surgery; ATTEND Orthopaedic Surgery